=== PATIENT | male | born 1990 | race Caucasian/White ===

== ENCOUNTER 2017-03-08 19:53 | Emergency (ER) | payer MEDICAID ==
[~2017-03-08] VITALS: Ht 162.6 cm; Wt 90.7 kg
[2017-03-08 20:27] VITALS: BP_SYST 146
[2017-03-08] MEDS ORDERED: cefTRIAXone 1 GM in LIDOCAINE 1%, 20 ML MDV 2.1 ML IM ONE (22:45)
[2017-03-08] MEDS ORDERED: SULFAMETHOXAZOLE/TRIMETHOPR DS 1 TABLET PO ONE (22:45)
[2017-03-08 22:54] VITALS: BP_SYST 144
== END 2017-03-08 22:54 | disposition home or self-care (01) ==
LOC: SED 19:53
DX: N61.0 Mastitis without abscess (principal)
CPT/HCPCS: 96372; 99283; J0696; J2001

== ENCOUNTER 2021-10-11 10:44 | Emergency (ER) | payer MEDICAID ==
[~2021-10-11] VITALS: Ht 162.6 cm; Wt 90.7 kg
[2021-10-11 10:45] VITALS: BP_SYST 137
[2021-10-11] MEDS ORDERED: IBUPROFEN 600 MG TABLET PO ONE (11:15)
[2021-10-11 11:30] LABS: BASOPHILS # (AUTO) 0.1 K/uL (0.0-0.2); BASOPHILS % (AUTO) 0.9 % (0.0-2.0); EOSINOPHILS # (AUTO) 0.2 K/uL (0.0-0.4); EOSINOPHILS % (AUTO) 2.7 % (0.0-4.0); HEMATOCRIT 40.2 % (36-54); LYMPHOCYTES # (AUTO) 2.1 K/uL (1.0-5.5); LYMPHOCYTES % (AUTO) 22.4 % (20.5-51.5); MEAN CORPUSCULAR HEMOGLOBIN 33 pg (27-31); MEAN CORPUSCULAR HGB CONC 35 % (32-36); MEAN CORPUSCULAR VOLUME 94 fL (79.0-98.0); MONOCYTES # (AUTO) 0.6 K/uL (0.0-1.0); MONOCYTES % (AUTO) 6.7 % (1.7-9.3); NEUTROPHILS # (AUTO) 6.3 K/uL (1.8-7.7); NEUTROPHILS % (AUTO) 67.3 % (40.0-70.0); PLATELET COUNT (AUTO) 243 K/uL (130-430); RED BLOOD CELL COUNT(AUTO) 4.29 MIL/uL (4.2-6.2); RED CELL DISTRIBUTION WIDTH 12.1 % (9.0-15.0); WHITE BLOOD COUNT (AUTO) 9.4 K/uL (4.8-10.8)
[2021-10-11 11:58] LABS: ALANINE AMINOTRANSFERASE 159 U/L (12-78); ALBUMIN 3.6 g/dL (3.4-4.8); ASPARTATE AMINOTRANSFERASE 49 U/L (10-37); CALCIUM 9.1 mg/dL (8.4-11.0); CREATININE 0.83 mg/dL (0.55-1.30); GLUCOSE 92 mg/dL (70-99); TOTAL BILIRUBIN 0.8 mg/dL (0.0-1.0); UREA NITROGEN, BLOOD 13 mg/dL (8-21)
[2021-10-11] MEDS ORDERED: KETOROLAC TROMETHAMINE 15 MG VIAL IVP ONE (12:00)
[2021-10-11 12:01] LABS: GFR AFRICAN AMERICAN 138 mL/min (>90)
[2021-10-11 12:06] LABS: ANION GAP 11 (5-15); CHLORIDE 103 mmol/L (98-107); POTASSIUM 3.9 mmol/L (3.5-5.1); SODIUM SERUM 139 mmol/L (136-145)
[2021-10-11] MEDS ORDERED: MORPHINE 4 MG INJ. 4 MG/ML VIAL IVP ONE (12:15)
[2021-10-11] MEDS ORDERED: IBUP-1969 PO ×3 (14:00→14:08)
[2021-10-11] MEDS ORDERED: ACET-2634 PO ×3 (14:01→14:08)
[2021-10-11] MEDS ORDERED: fentaNYL CITRATE/PF 100 MCG/2 ML AMP IVP ONE (14:15)
[2021-10-11 15:16] VITALS: BP_SYST 137
== END 2021-10-11 15:16 ==
LOC: SED 10:44
DX: S20.219A Contusion of unspecified front wall of thorax, initial encounter (principal); X50.0XXA Overexertion from strenuous movement or load, initial encounter; Y93.B9 Activity, other involving muscle strengthening exercises; Y92.89 Other specified places as the place of occurrence of the external cause; Y99.8 Other external cause status
CPT/HCPCS: 36415; 71046; 80053; 84484; 85025; 93005; 96374; 96375; 99284; J1885; J2270; J3010

== ENCOUNTER 2021-10-24 19:48 | Emergency (ER) | payer MEDICAID ==
[~2021-10-24] VITALS: Ht 162.6 cm; Wt 95.3 kg
[~2021-10-24 19:48] MED LIST: ACET-2634 PO; IBUP-1969 PO
[2021-10-24 20:00] VITALS: BP_SYST 137
--- NOTE | 2021-10-24 20:11 | NUR ---
31 YR OLD MALE AMBULATORY WITH COMPLAINT OF LACERATION / SKIN TEAR ON RIGHT CHIN. PT REPORTS DROPPING A CEMENT BLOCK ABOUT AN HOUR AGO ON HIS LEG. PT NOTED TO HAVE ACTIVE BLEEDING. TECH IN TRIAGE TO CLEAN AND COVER WOUND. PT REPORTS 9/10 PAIN, DENIES ANY DIFFICULTY AMBULATING. PT DENIES ANY HEALTH HISTORY. PT PLACED IN ROOM 7
--- NOTE | 2021-10-24 20:29 | NUR ---
ER at bedside examining patient.
[2021-10-24] MEDS ORDERED: BACITRACIN 1 GM OINT TP ONE (20:30)
[2021-10-24] MEDS ORDERED: DIPH-TET-PERTUS Vaccine 0.5 ML VIAL (ADACEL) I.M. ONE (20:30)
[2021-10-24] MEDS ORDERED: LIDOCAINE 1% 10 MG/ML, 20 ML MDV INJ ONE (20:30)
--- NOTE | 2021-10-24 20:42 | NUR ---
RAD AT BEDSIDE FOR IMAGING.
[2021-10-24] MEDS ORDERED: LIDOCAINE 1%, 20 ML MDV 20 ML ONE (20:53)
[2021-10-24] MEDS ORDERED: IBUPROFEN 800 MG TABLET PO ONE (21:00)
[2021-10-24] MEDS ORDERED: HYDROcodone/ACETAMIN 10-325 MG TAB PO ONE (21:00)
[2021-10-24] MEDS ORDERED: HYDR-3917 PO (21:15)
[2021-10-24] MEDS ORDERED: IBUP-1971 PO (21:15)
[2021-10-24 22:14] VITALS: BP_SYST 135
--- NOTE | 2021-10-24 22:14 | NUR ---
Patient given written and verbal discharge instructions and verbalizes understanding. ER MD discussed with patient the results and treatment provided. Patient in stable condition. Rx of [place] 5/325 and Ibuprofen given. Patient educated on pain management and to follow up with PMD. Pain Scale 0/10. Opportunity for questions provided and answered.
== END 2021-10-24 22:14 | disposition home or self-care (01) ==
LOC: SED 19:48
DX: S81.811A Laceration without foreign body, right lower leg, initial encounter (principal); Z79.899 Other long term (current) drug therapy; W45.8XXA Other foreign body or object entering through skin, initial encounter; Y93.89 Activity, other specified; Y92.89 Other specified places as the place of occurrence of the external cause; Y99.8 Other external cause status
CPT/HCPCS: 12002; 73590; 90471; 90715; 99283; J2001